=== PATIENT | male | born 1940 | race Caucasian/White ===

== ENCOUNTER 2022-07-23 06:15 | Day surgery (SDC) | payer OTHER ==
[~2022-07-23] VITALS: Ht 175.3 cm; Wt 91.5 kg
[~2022-07-23 06:15] MED LIST: LEVO-T50 MCG PO; LISI20 PO
[2022-07-23] MEDS ORDERED: ATOR10 (06:49)
--- NOTE | 2022-07-23 08:45 | NUR ---
07/23/22 0845 Alee Lester PT REFUSED MULTIPLE OFFERS FOR PO FLUIDS
== END 2022-07-23 08:45 | disposition home or self-care (01) ==
LOC: ORSCSDS 06:15
PROVIDERS: Surgery
PROC: 0DJD8ZZ Inspection of Lower Intestinal Tract, Via Natural or Artificial Opening Endoscopic (ICD-10-PCS; principal; 2022-07-23 08:00)
DX: Z12.11 Encounter for screening for malignant neoplasm of colon (principal); Z86.010 Personal history of colon polyps; K57.30 Diverticulosis of large intestine without perforation or abscess without bleeding; I12.9 Hypertensive chronic kidney disease with stage 1 through stage 4 chronic kidney disease, or unspecified chronic kidney disease; N18.30 Chronic kidney disease, stage 3 unspecified; I73.9 Peripheral vascular disease, unspecified; J44.9 Chronic obstructive pulmonary disease, unspecified; D64.9 Anemia, unspecified; E03.9 Hypothyroidism, unspecified; E78.5 Hyperlipidemia, unspecified; E66.9 Obesity, unspecified; Z87.891 Personal history of nicotine dependence; Z68.30 Body mass index [BMI] 30.0-30.9, adult; Z79.899 Other long term (current) drug therapy
CPT/HCPCS: J2704; J7120